=== PATIENT | female | born 1995 | race Caucasian/White ===

== ENCOUNTER 2017-10-25 15:09 | Emergency (ER) | payer OTHER ==
[2017-10-25 15:49] VITALS: BP 108/73; PULSE 85
[2017-10-25 15:50] VITALS: PULSE 90
[2017-10-25 15:55] VITALS: PULSE 95
--- NOTE | 2017-10-25 16:16 | PD ---
HPI Chief Complaint Leaking of fluid Travel History International Travel<30 Days: No Contact w/Intl Traveler<30Days: No Known Affected Area: No History of Present Illness HPI 21-year-old , IUP at 36.3 care complicated by remote history of psoriatic arthritis, patient has had no recent issues or issues during Patient presents complaining of some dampness in her underwear after using the bathroom at 11 AM this morning. She reports the fluid was clear and just a small amount. She did not need to wear a pad or panty liner. She she reports that this occurred again after arriving with some dampness in her underwear. She reports that she does occasionally leak urine when she laughs. She reports good movement. She denies any gush of fluid or vaginal bleeding. She denies any painful contractions or cramping. She has no other complaints today. Weeks Gestation: 36 Para: 0 : 1 History Past Medical History Narrative Medical Remote history of psoriatic arthritis Obstetric History Obstetric History Past Surgical History Surgical History: No Previous Surgery Family History Narrative Family History Psoriatic arthritis, psoriasis Social History Alcohol Use: No Tobacco Use: No Substance Abuse: No Allergies-Medications (Allergen,Severity, Reaction): Coded Allergies: blue dye (Unverified Allergy, Mild, HIVES, 05/22/17) BLUE DYE #1 Home Meds No Active Prescriptions or Reported Meds Review of Systems Except as stated in HPI: all other systems reviewed are Neg Physical Exam Narrative GENERAL: Well-nourished, well-developed patient. SKIN: Warm and dry. HEAD: Normocephalic and atraumatic. EYES: No scleral icterus. No injection or drainage. ENT: No nasal drainage noted. Mucous membranes pink. Airway patent. NECK: Supple, trachea midline. No JVD. CARDIOVASCULAR: Regular rate and rhythm without murmurs, gallops, or rubs. RESPIRATORY: Breath sounds equal bilaterally. No accessory muscle use. BREASTS: Deferred ABDOMEN/GI: Abdomen soft, non-tender, bowel sounds present, no rebound, no guarding Gravid GENITOURINARY: External Genitalia: intact and normal in appearance, grossly normal BUS, no evidence of gross R OM. Amniosure negative. Patient refused speculum and SVE due to discomfort. Patient was uncomfortable during amniosure. Uterine Contractions: No regular uterine contractions FHT's: heart tones with a baseline in the 130s with moderate long-term variability, good accelerations, no decelerations noted. This is a category 1 heart rate tracing and a reactive NST. EXTREMITIES: No cyanosis or edema. BACK: Nontender without obvious deformity. NEUROLOGICAL/musculoskeletal: Awake and alert. Motor and sensory grossly within normal limits. Grossly normal muscle strength in all muscle groups. Grossly normal range of motion and gait. Normal speech. Psychiatric: Grossly normal memory/affect Data Data Orders Orders Vital Signs (Adult) .ON ADMISSION (10/25/17 16:06) ^ Labor Status (10/25/17 16:06) Urinalysis - C+S If Indicated (10/25/17 16:06) ^ Non Stress Test (10/25/17 16:06) Pamg-1 Test .ONCE (10/25/17 16:06) MDM Plan Assessment/plan: 1. IUP at 36.3 2. Leaking of fluid: No evidence of rupture of membranes with negative examination and negative amniosure. 3. Strict PPROM precautions. No evidence of labor, strict labor precautions 4. UA: Urine dip negative 5. well-being: Reassuring testing with reactive NST and category 1 heart rate tracing. heart rate is appropriate and reassuring for gestational age. kick counts daily. 6. Remote history of psoriatic arthritis: No current issues and no issues during 7. Follow up with primary OB tomorrow as scheduled or sooner if needed Diagnosis Diagnosis: Primary Impression: 36 weeks gestation of Additional Impression: No leakage of amniotic fluid into vagina Disposition: 01 DISCHARGE HOME Condition: Good Scripts No Active Prescriptions or Reported Praveena Gu MD Oct 25, 2017 16:16
== END 2017-10-25 17:45 | disposition home or self-care (01) ==
LOC: HOBED 15:09
DX: O99.713 Diseases of the skin and subcutaneous tissue complicating pregnancy, third trimester (principal); L40.50 Arthropathic psoriasis, unspecified; Z3A.36 36 weeks gestation of pregnancy
CPT/HCPCS: 59025

== ENCOUNTER 2017-11-21 18:11 | Inpatient (IN) | payer OTHER ==
[~2017-11-21] VITALS: Ht 154.9 cm; Wt 84.4 kg
[2017-11-21] MEDS: LACTATED RINGER'S 1000 ML IV SCH (18:56)
[2017-11-21] MEDS ORDERED: PRENTAB7 PO (19:47)
[2017-11-21 20:09] LABS: AUTOMATED NEUTROPHIL # 7.4 TH/MM3 (1.8-7.7); BASOPHIL % 0.4 % (0.0-2.0); EOSINOPHIL # 0.1 TH/MM3 (0-0.4); EOSINOPHIL % 0.8 % (0.0-4.0); HEMATOCRIT 35.7 % (35.0-46.0); HEMOGLOBIN 11.7 GM/DL (11.6-15.3); LYMPH % 23.7 % (9.0-44.0); LYMPHOCYTE # 2.5 TH/MM3 (1.0-4.8); MEAN CELL VOLUME 75.8 FL (80.0-100.0); MEAN CORPUSCULAR HEMOGLOBIN 24.8 PG (27.0-34.0); MEAN CORPUSCULAR HGB CONC 32.7 % (32.0-36.0); MEAN PLATELET VOLUME 8.1 FL (7.0-11.0); MONO % 4.7 % (0.0-8.0); MONOCYTE # 0.5 TH/MM3 (0-0.9); NEUT % 70.4 % (16.0-70.0); PLATELET COUNT 257 TH/MM3 (150-450); RED BLOOD COUNT 4.71 MIL/MM3 (4.00-5.30); RED CELL DISTRIBUTION WIDTH 15.4 % (11.6-17.2); WHITE BLOOD COUNT 10.5 TH/MM3 (4.0-11.0)
[2017-11-21 20:37] LABS: BACTERIA, URINE MOD /hpf; BILIRUBIN, URINE NEG (NEG); BLOOD, URINE SMALL (NEG); GLUCOSE,URINE NEG (NEG); KETONE, URINE TRACE mg/dL (NEG); MUCUS URINE FEW /lpf (OCC); NITRITE,URINE NEG (NEG); SQUAMOUS EPITHELIAL CELL URINE 10 /hpf (0-5); URINE COLOR YELLOW (YELLW/STRAW); URINE LEUKOCYTE ESTERASE SMALL (NEG)
[2017-11-21] MEDS ORDERED: NS 500 ML BOLUS IV PRN (20:45)
[2017-11-21] MEDS ORDERED: MINERAL OIL 10 ML VIAL TOPICAL PRN (20:45)
[2017-11-21] MEDS ORDERED: LACTATED RINGER'S 1000 ML BOLUS IV PRN (20:45)
[2017-11-21] MEDS ORDERED: CITRIC ACID-SODIUM CITRATE LIQ 30 ML UDC PO SCH (20:45)
[2017-11-21] MEDS ORDERED: LIDOCAINE HCL 1% 50 ML VIAL INFIL PRN (20:45)
[2017-11-21] MEDS ORDERED: LIDOCAINE HCL 1% 50 ML VIAL I-DERMAL PRN (20:45)
[2017-11-21] MEDS ORDERED: NS 1000 ML IV PRN (20:45)
[2017-11-21] MEDS ORDERED: ONDANSETRON HCL 4 MG/2 ML VIAL IV PUSH PRN (20:45)
[2017-11-21] MEDS ORDERED: OXYTOCIN 30 UNITS 500ML PREMIX IV ONE (20:45)
[2017-11-21] MEDS ORDERED: ZOLPIDEM TARTRATE 10 MG TAB PO PRN (20:45)
[2017-11-22] VITALS (66 sets, daily range): BP systolic 78–125; BP diastolic 44–78; PULSE 18–203; RESP 14–20; TEMP 97.4–98; O2SAT 99–100
[2017-11-22] MEDS ORDERED: OXYTOCIN 30 UNITS/NS 500ML PREMIX IV PRN
[2017-11-22] MEDS: LACTATED RINGER'S 1000 ML IV SCH (01:57)
[2017-11-22] MEDS ORDERED: ALUMINUM/MAGNESIUM/SIMETH 30 ML CUP PO PRN ×2 (02:00→11:30)
[2017-11-22] MEDS ORDERED: fentaNYL 2MCG-BUPIV 0.125% INJ 100 ML ONE (06:36)
[2017-11-22] MEDS ORDERED: ePHEDrine/NS 25 MG/5 ML SYRINGE ONE (07:06)
--- NOTE | 2017-11-22 08:15 | MH ---
cc: NEGRITO ALDANA DATE OF ADMISSION: 11/21/2017 She is 21 years old. 1, para 0 intrauterine at 40 weeks 2 days. care has been with [facility], uncomplicated. Her blood type is A+. Her GCT was 70. Her group B strep was negative. Her hematocrit was 35. PAST OBSTETRICAL HISTORY She is primigravid. 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 She had a normal Pap smear April 05, 2017. PAST MEDICAL HISTORY She denies hypertension, diabetes or asthma. PAST SURGICAL HISTORY She had left arm surgery in 2005. SOCIAL HISTORY She denies toxic habits. MEDICATIONS She takes vitamins. ALLERGIES NO KNOWN DRUG ALLERGIES. PHYSICAL EXAMINATION VITAL SIGNS: Her vital signs stable. She is afebrile. Blood pressure is 110/60. She is 186 pounds. HEAD: Examination within normal limits. HEART: Examination within normal limits. CHEST: Examination within normal limits. LUNGS: Examination within normal limits. ABDOMEN: Soft, nontender, gravid. PELVIC: She is 3 cm, 50% effaced, -1 station. ASSESSMENT/PLAN She is 21-year-old 1, para 0 intrauterine at 40 weeks 2 days post dates. She will be admitted for Cytotec induction. MD TIM Sanchez/BRENDA /3:37 PM /8:02 AM
[2017-11-22] MEDS ORDERED: ePHEDrine/NS 25 MG/5 ML SYRINGE IV PUSH PRN ×2 (09:00→14:00)
[2017-11-22] MEDS ORDERED: fentaNYL 2MCG-BUPIV 0.125% 100 ML EPIDURAL SCH ×2 (09:00→14:00)
[2017-11-22] MEDS ORDERED: NO SYSTEM NARCOTICS PRN ×2 (09:00→14:00)
[2017-11-22] MEDS ORDERED: DO NOT ADMINISTER ANTICOAGULANTS PRN ×2 (09:00→14:00)
--- NOTE | 2017-11-22 10:02 | PD.LABORPN ---
Subjective Subjective just woke up after getting epidural at 7 am can tell when having contraction but no pain Objective Vital Signs Vital Signs Date Time Temp Pulse Resp B/P (MAP) Pulse Ox O2 Delivery O2 Flow Rate FiO2 11/22/17 09:20 76 100 11/22/17 09:15 75 86/44 (58) 99 11/22/17 09:15 75 11/22/17 09:14 18 11/22/17 09:10 73 99 11/22/17 09:05 71 99 11/22/17 09:00 80 11/22/17 09:00 18 11/22/17 09:00 76 94/50 (65) 99 11/22/17 08:55 77 100 11/22/17 08:50 80 99 11/22/17 08:45 76 94/51 (65) 99 11/22/17 08:45 18 11/22/17 08:45 73 11/22/17 08:40 99 11/22/17 08:40 83 11/22/17 08:35 77 87/49 (62) 11/22/17 08:35 99 11/22/17 08:35 78 11/22/17 08:30 18 11/22/17 08:30 82 90/52 (65) 100 11/22/17 08:30 81 11/22/17 08:25 79 94/46 (62) 99 11/22/17 08:25 77 11/22/17 08:20 77 11/22/17 08:20 77 90/53 (65) 100 11/22/17 08:15 89 11/22/17 08:15 85 18 93/52 (66) 100 11/22/17 08:11 100 78/55 (63) 11/22/17 08:10 76 100 11/22/17 08:05 73 102/54 (70) 100 11/22/17 08:05 74 11/22/17 08:00 77 104/62 (76) 11/22/17 08:00 79 100 11/22/17 08:00 18 11/22/17 07:55 71 11/22/17 07:55 72 100 11/22/17 07:55 103/61 (75) 11/22/17 07:50 75 100 11/22/17 07:50 75 11/22/17 07:50 104/66 (79) 11/22/17 07:45 90 11/22/17 07:45 85 108/71 (83) 11/22/17 07:45 100 11/22/17 07:40 100 11/22/17 07:40 97 11/22/17 07:40 90 102/62 (75) 11/22/17 07:35 78 98/59 (72) 11/22/17 07:35 89 11/22/17 07:35 100 11/22/17 07:30 100 11/22/17 07:30 78 99/64 (76) 11/22/17 07:30 18 11/22/17 07:30 89 11/22/17 07:25 91 11/22/17 07:25 97 103/66 (78) 100 11/22/17 07:20 92 104/67 (79) 100 11/22/17 07:20 102 11/22/17 07:15 92 110/66 (81) 11/22/17 07:15 91 100 11/22/17 07:14 87 107/64 (78) 11/22/17 07:11 101 106/67 (80) 11/22/17 07:10 85 11/22/17 07:10 96 113/72 (86) 100 11/22/17 07:05 92 115/65 (82) 11/22/17 07:05 114 100 11/22/17 07:00 99 115/78 (90) 100 11/22/17 07:00 120 11/22/17 06:59 20 11/22/17 06:56 102 11/22/17 06:56 111/71 (84) 11/22/17 06:55 98 100 11/22/17 06:54 105 11/22/17 06:54 112/76 (88) 11/22/17 06:50 96 100 11/22/17 06:45 100 11/22/17 06:45 88 11/22/17 05:03 97.5 80 17 121/65 (83) Objective strip category 1 complete with BBOW AROM clear station 0 pelvis clinically adequate EFW 7 pounds Weeks Gestation: 40 Gest Age Assessed Date: Nov 22, 2017 Gest Age Assessed Time: 10:01 Pt started active labor?: Yes Active labor start date: Nov 21, 2017 Active labor start time: 10:00 Medical induction of labor?: Yes Medical induction start date: Nov 21, 2017 Medical induction start time: 08:00 Artificial rupture of membrane: Yes Artificial ROM date: Nov 22, 2017 Artifical ROM time: 10:01 Assessment/Plan Assessment and Plan term nullip who is complete and feeling no urge to push will turn down epidural and start pushing soon anticipate Emily Palacios MD Nov 22, 2017 10:02
[2017-11-22] MEDS ORDERED: LIDOCAINE HCL 1% 20 ML VIAL ONE (10:34)
--- NOTE | 2017-11-22 11:24 | PD.OB.DELI ---
Weeks gestation: 40 Gest age assessed date: Nov 22, 2017 Gest age assessed time: 10:01 Pt started active labor?: Yes Active labor start date: Nov 21, 2017 Active labor start time: 10:00 Medical induction of labor?: Yes Medical induction start date: Nov 21, 2017 Medical induction start time: 08:00 Artificial rupture of membrane: Yes Artificial ROM date: Nov 22, 2017 Artifical ROM time: 10:01 Anesthesia: Epidural Episiotomy: None Vaginal Delivery: Normal Presentation: Occiput anterior Nuchal Cord: None Delayed cord clamping (45 sec): Yes Infant: Female Delivery date: Nov 22, 2017 Delivery time: 11:23 One Minute : 8 Five Minute : 9 Weight: 7 Placenta: Spontaneous delivery Laceration: Perineal laceration, 2 deg Repair: Chromic running Estimated blood loss: 400 Emily Palacios MD Nov 22, 2017 11:24
[2017-11-22] MEDS ORDERED: DOCUSATE SODIUM 50 MG/SENNA 8.6 MG TAB PO PRN (11:30)
[2017-11-22] MEDS ORDERED: SODIUM CHLORIDE 0.9% FLUSH 10 ML FLUSH IV FLUSH PRN (11:30)
[2017-11-22] MEDS ORDERED: OXYTOCIN 30 UNITS-500ML PREMIX 500 ML IV SCH (11:30)
[2017-11-22] MEDS ORDERED: WITCH HAZEL 50%/GLYCERIN 12.5% 40 PAD JAR TOPICAL PRN (11:30)
[2017-11-22] MEDS ORDERED: BENZOCAINE 20% TOPICAL SPRAY 60 ML CAN TOPICAL PRN (11:30)
[2017-11-22] MEDS ORDERED: ONDANSETRON ODT 4 MG TAB PO PRN (11:30)
[2017-11-22] MEDS: IBUPROFEN 800 MG TAB PO PRN ×2 (14:19→22:09)
[2017-11-22] MEDS ORDERED: DIPHTH/TETANUS/ACEL PERTUSSIS (BOOSTER) 0.5 ML VIAL/PFS IM ONE (16:00)
[2017-11-22] MEDS ORDERED: MEASLES, MUMPS, RUBELLA VACCINE 0.5 ML VIAL SQ ONE (16:00)
[2017-11-22] MEDS: ACETAMINOPHEN 325 MG TAB PO PRN (19:49)
[2017-11-22] MEDS ORDERED: SODIUM CHLORIDE 0.9% FLUSH 10 ML FLUSH IV FLUSH SCH (21:00)
[2017-11-22] MEDS ORDERED: ZOLPIDEM TARTRATE 5 MG TAB PO PRN (21:00)
--- NOTE | 2017-11-23 07:50 | HHI.OB ---
Subjective Post Day: 1 Remarks doing well PPD 1 no complaints had second degree repair Objective Vitals/I&O Vital Signs Date Time Temp Pulse Resp B/P (MAP) Pulse Ox O2 Delivery O2 Flow Rate FiO2 11/22/17 22:00 97.8 67 16 93/58 (70) 11/22/17 17:00 16 11/22/17 17:00 83 104/60 (75) 11/22/17 17:00 97.4 11/22/17 17:00 100 11/22/17 14:21 20 11/22/17 14:00 98.0 83 14 111/69 (83) 11/22/17 13:15 98.0 83 111/69 (83) 11/22/17 13:15 18 11/22/17 12:16 84 116/57 (76) 11/22/17 12:15 18 11/22/17 12:11 18 11/22/17 12:00 84 115/63 (80) 11/22/17 11:51 18 11/22/17 11:45 100 118/63 (81) 11/22/17 11:39 18 11/22/17 11:30 18 11/22/17 11:30 101 113/61 (78) 11/22/17 11:29 106 125/54 (77) 11/22/17 11:15 18 11/22/17 11:00 203 104/63 (77) 11/22/17 10:44 18 11/22/17 10:30 89 108/65 (79) 11/22/17 10:08 18 18 11/22/17 10:00 113 100/52 (68) 11/22/17 10:00 18 11/22/17 09:45 18 11/22/17 09:40 89 99 11/22/17 09:35 74 100 11/22/17 09:30 74 18 101/51 (68) 99 11/22/17 09:30 73 11/22/17 09:20 76 100 11/22/17 09:15 75 86/44 (58) 99 11/22/17 09:15 75 11/22/17 09:14 18 11/22/17 09:10 73 99 11/22/17 09:05 71 99 11/22/17 09:00 80 2/15/18 09:00 18 11/22/17 09:00 76 94/50 (65) 99 11/22/17 08:55 77 100 11/22/17 08:50 80 99 11/22/17 08:45 76 94/51 (65) 99 11/22/17 08:45 18 11/22/17 08:45 73 11/22/17 08:40 99 11/22/17 08:40 83 11/22/17 08:35 77 87/49 (62) 11/22/17 08:35 99 11/22/17 08:35 78 11/22/17 08:30 18 11/22/17 08:30 82 90/52 (65) 100 11/22/17 08:30 81 11/22/17 08:25 79 94/46 (62) 99 11/22/17 08:25 77 11/22/17 08:20 77 11/22/17 08:20 77 90/53 (65) 100 11/22/17 08:15 89 11/22/17 08:15 85 18 93/52 (66) 100 11/22/17 08:11 100 78/55 (63) 11/22/17 08:10 76 100 11/22/17 08:05 73 102/54 (70) 100 11/22/17 08:05 74 11/22/17 08:00 77 104/62 (76) 11/22/17 08:00 79 100 11/22/17 08:00 18 11/22/17 07:55 71 11/22/17 07:55 72 100 11/22/17 07:55 103/61 (75) 11/22/17 07:50 75 100 11/22/17 07:50 75 11/22/17 07:50 104/66 (79) Objective Remarks GENERAL: Well-nourished, well-developed patient. CARDIOVASCULAR: Regular rate and rhythm without murmurs, gallops, or rubs. RESPIRATORY: Breath sounds equal bilaterally. No accessory muscle use. ABDOMEN/GI: Abdomen soft, non-tender. Fundus: Firm, non-tender at umbilicus. GENITOURINARY: Light to moderate bleeding. EXTREMITIES: No cyanosis or edema, non-tender, without signs of DVT. Medications and IVs Current Medications Medications (Trade) Dose Ordered Sig/Anne Route Start Time Stop Time Status Last Admin Oxytocin 500 ml @ 0 mls/hr TITRATE PRN IV 11/22/17 00:00 11/22/17 00:09 Lactated Ringer's 1,000 ml @ 125 mls/hr Q8H IV 11/21/17 20:45 11/22/17 01:57 Lactated Ringer's 1,000 ml @ 3,000 mls/hr BOLUS PRN IV 11/21/17 20:45 Sodium Chloride 500 ml @ 1,000 mls/hr BOLUS PRN IV 11/21/17 20:45 Sodium Chloride 1,000 ml @ 100 mls/hr Q10H PRN IV 11/21/17 20:45 (Bicitra Liq) 30 ml SLD EDUCATIONAL AIDE PO 11/21/17 20:45 11/24/17 20:44 (Zofran Inj) 4 mg Q6H PRN IV PUSH 11/21/17 20:45 (fentaNYL INJ) 50 mcg Q1H PRN IV PUSH 11/21/17 20:45 (fentaNYL INJ) 100 mcg Q1H PRN IV PUSH 11/21/17 20:45 11/22/17 07:58 (Muri-Lube Oil) 10 ml UNSCH PRN TOPICAL 11/21/17 20:45 Miscellaneous Information No systemic narcotics to be given except... UNSCH PRN .XX 11/22/17 09:00 11/23/17 08:59 Miscellaneous Information DO NOT ADMINISTER ANY ANTICOAGUL... UNSCH PRN .XX 11/22/17 09:00 11/23/17 08:59 Fentanyl/ Bupivacaine HCl 100 ml @ 0 mls/hr TITRATE EPIDURAL 11/22/17 09:00 (ePHEDrine/NS 25 MG/5 ML SYR) 10 mg UNSCH PRN IV PUSH 11/22/17 09:00 11/23/17 08:59 (NS Flush) 2 ml BID IV FLUSH 11/22/17 21:00 (NS Flush) 2 ml UNSCH PRN IV FLUSH 11/22/17 11:30 (Tylenol) 650 mg Q4H PRN PO 11/22/17 11:30 11/22/17 19:49 (Motrin) 800 mg Q8H PRN PO 11/22/17 11:30 11/22/17 22:09 (Americaine 20% Top Spr) 1 spray Q4H PRN TOPICAL 11/22/17 11:30 (Tucks Pads) 1 applic QID PRN TOPICAL 11/22/17 11:30 (Batsheva-Colace) 2 tab Q12H PRN PO 11/22/17 11:30 (Ambien) 5 mg HS PRN PO 11/22/17 21:00 (Mag-Al Plus Susp Liq) 15 ml Q8H PRN PO 11/22/17 11:30 (Zofran Odt) 4 mg Q6H PRN PO 11/22/17 11:30 Miscellaneous Information No systemic narcotics to be given except... UNSCH PRN .XX 11/22/17 14:00 11/23/17 13:59 Miscellaneous Information DO NOT ADMINISTER ANY ANTICOAGUL... UNSCH PRN .XX 11/22/17 14:00 11/23/17 13:59 Fentanyl/ Bupivacaine HCl 100 ml @ 0 mls/hr TITRATE EPIDURAL 11/22/17 14:00 (ePHEDrine/NS 25 MG/5 ML SYR) 10 mg UNSCH PRN IV PUSH 11/22/17 14:00 11/23/17 13:59 Assessment/Plan Assessment and Plan PPD 1 doing well with no issues. can go home tomorrow with ibuprofen. Emily Palacios MD Nov 23, 2017 07:50
--- NOTE | 2017-11-23 07:50 | HHI.DCPOC ---
Discharge Care Plan Report Symptoms to Your Doctor -Temperature above 100.5 degrees -Redness, of incision or excessive or foul smelling drainage -Unusual pain or calf pain -Increased vaginal bleeding -Painful or difficulty urinating -Feelings of extreme sadness or anxiety after 2 weeks Goals to Promote Your Health * To prevent worsening of your condition and complications * To maintain your health at the optimal level Directions to Meet Your Goals Take your medications as prescribed Follow your dietary instruction Follow activity as directed Ensure plenty of rest for recovery Drink fluids for hydration Keep your appointments as scheduled Take your immunizations and boosters as scheduled If your symptoms worsen call your PCP, if no PCP go to Urgent Care Center or Emergency Room Smoking is Dangerous to Your Health. Avoid second hand smoke Call the 24-hour crisis hotline for domestic abuse at Emily Palacios MD Nov 23, 2017 07:50
[2017-11-23] MEDS: ACETAMINOPHEN 325 MG TAB PO PRN ×2 (07:55→12:33)
[2017-11-23] MEDS: IBUPROFEN 800 MG TAB PO PRN ×2 (07:55→15:51)
[2017-11-23 08:00] VITALS: BP 111/66; PULSE 66; RESP 18; O2SAT 97
== END 2017-11-23 16:47 | disposition home or self-care (01) | DRG 775 ==
LOC: H2EB 18:11 → H1EA 11-22 13:49
PROVIDERS: ADMIT Obstetrics & Gynecology; ATTEND Obstetrics & Gynecology
PROC: 10E0XZZ Delivery of Products of Conception, External Approach (ICD-10-PCS; principal; 2017-11-22)
PROC: 0KQM0ZZ Repair Perineum Muscle, Open Approach (ICD-10-PCS; 2017-11-22)
PROC: 00HU33Z Insertion of Infusion Device into Spinal Canal, Percutaneous Approach (ICD-10-PCS; 2017-11-22)
PROC: 3E0R3BZ Introduction of Anesthetic Agent into Spinal Canal, Percutaneous Approach (ICD-10-PCS; 2017-11-22)
PROC: 10907ZC Drainage of Amniotic Fluid, Therapeutic from Products of Conception, Via Natural or Artificial Opening (ICD-10-PCS; 2017-11-22)
DX: O70.1 Second degree perineal laceration during delivery (principal); Z37.0 Single live birth; O48.0 Post-term pregnancy; Z3A.40 40 weeks gestation of pregnancy
CPT/HCPCS: 59025; 80307; 81001; 85025; 86900; 86901; 87086; 90715; J2590; J3010; J7120